=== PATIENT | female | born 1945 | race Caucasian/White ===

== ENCOUNTER → 2017-04-07 | Outpatient (CLI) | payer MEDICARE ==
[~2017-04-07] MED LIST: ASPIRIN PO; CALCIUM PO; CITALOPRAM PO; MULTIVITAMIN PO; RESV50CA PO; SIMV20TA2 PO; TRIPLE FLEX PO; TUMERIC PO; UBIQUINONE PO; VITAMIN B COMPLEX PO; VITAMIN D3 PO; [UNRECOGNIZED DRUG - OTHER] PO
== END | disposition home or self-care (01) ==
LOC: RAH 13:45
PROVIDERS: ATTEND Physician Assistant Medical
DX: M25.571 Pain in right ankle and joints of right foot (principal)
CPT/HCPCS: 73610